=== PATIENT | male | born 1955 | race Caucasian/White ===

== ENCOUNTER 2020-12-08 09:56 | Emergency (ER) | payer MEDICAID ==
[~2020-12-08] VITALS: Ht 177.8 cm; Wt 63.6 kg
[~2020-12-08 09:56] MED LIST: NOCURR
[2020-12-08 10:05] VITALS: BP 142/84
== END 2020-12-08 11:41 | disposition home or self-care (01) ==
LOC: EMS 10:13
DX: B02.9 Zoster without complications (principal)
CPT/HCPCS: 99283; Z7502

== ENCOUNTER 2022-06-18 09:26 | Emergency (ER) | payer MEDICARE, MEDICAID ==
[~2022-06-18] VITALS: Ht 182.9 cm; Wt 86.4 kg
[2022-06-18] MEDS ORDERED: LIDOCAINE 5% TRANSDERMAL PATCH TD ONE (11:45)
[2022-06-18] MEDS ORDERED: BACLOFEN 10 MG TABLET PO ONE (11:45)
[2022-06-18] MEDS ORDERED: KETOROLAC TROMETHAMINE 30 MG/ML VIAL IM ONE (11:45)
[2022-06-18 13:25] VITALS: BP 120/59
[2022-06-18] MEDS ORDERED: BACL10TA PO (13:39)
[2022-06-18] MEDS ORDERED: IBUP-1492 PO (13:42)
== END 2022-06-18 13:56 | disposition home or self-care (01) ==
LOC: EMS 09:52
DX: M54.2 Cervicalgia (principal); V49.49XA Driver injured in collision with other motor vehicles in traffic accident, initial encounter; Y93.89 Activity, other specified; Y92.89 Other specified places as the place of occurrence of the external cause; Y99.8 Other external cause status
CPT/HCPCS: 99285; 72125; 71046; 96372; J1885